=== PATIENT | male | born 1950 | race Caucasian/White ===

== ENCOUNTER 2024-10-04 11:00 | Day surgery (SDC) | payer OTHER, SELFPAY ==
[2024-10-01 14:02] VITALS: BMI 38.1
[2024-10-04 12:40] VITALS: BP 150/84; PULSE 77; RESP 18; TEMP 37; O2SAT 100; BMI 38.1
[2024-10-04] MEDS: LACTATED RINGERS 1,000 ML 42 ML IV (13:20)
--- NOTE | 2024-10-04 14:06 | P.HP_ITS ---
History of Present Illness History of Present Illness Date Patient Seen: 10/04/24 Time Patient Seen: 14:07 Chief complaint: Left Arthroscopy Knee Narrative: He notes persistent ongoing left knee pain. He has intermittent popping and clicking most of the pain is medially. [facility]LY [facility] Medical History HTN (hypertension) Social History Smoking Status: Current every day smoker Meds Home Medications and Allergies Home Medications Medication Instructions Recorded Confirmed Type lisinopril 10 mg tablet 10 mg PO DAILY 10/01/24 10/04/24 History Allergies Allergy/AdvReac Type Severity Reaction Status Date / Time codeine Allergy Verified 10/04/24 12:38 morphine Allergy Verified 10/04/24 12:38 naproxen [From Aleve] Allergy Verified 10/04/24 12:38 piroxicam [From Feldene] Allergy Verified 10/04/24 12:38 Review of Systems Review of Systems Narrative: No new fevers or chills, parts been fine lungs are fine Exam Vital Signs (past 8 hours): - 10/04/24 12:40 Temperature 98.6 F Pulse Rate 77 Respiratory Rate 18 Blood Pressure 150/84 H Pulse Oximetry 100 Narrative Exam Narrative: HEENT is benign, lungs are clear, cor regular rate and rhythm, abdomen soft and benign, left knee focal tenderness to palpation along the medial joint line, positive flexion [place] for medial joint line pain, no instability Objective Labs Labs: MRI scan shows a recurrent medial meniscus tear left knee Assessment & Plan Assessment and plan (1) Tear of medial meniscus of left knee, current: Status: Acute Plan I have recommended a left knee arthroscopy with repair as indicated. He has persistent ongoing medial joint line pain with some mechanical symptoms. The limits of the procedure options risks benefits and complications were discussed in detail. He understands and agrees we are going to proceed with a left knee arthroscopy. Time-Based Coding :: [TOTAL MINUTES] spent with patient and on the chart (including review of chart, obtaining history, exam, reviewing outside data, placing orders, documenting exam and treatment plan, and counseling patient) on [DATE].
[2024-10-04] MEDS: ACETAMINOPHEN 325 MG TABLET 975 MG PO (14:25)
[2024-10-04] MEDS: CEFAZOLIN VIAL 3 GM in SODIUM CHLORIDE 0.9% 100 ML IV (15:35)
[2024-10-04] MEDS: CEFAZOLIN 2 GM/100 ML PREMIX 100 ML IV (15:38)
--- NOTE | 2024-10-04 15:58 | SUR.OPER ---
Supine on padded OR bed, head on pillow, arms secured on padded arm boards at <90 degrees abduction, operative leg in arthroscopic leg linares, non operative in yellow fin gagan
[2024-10-04] MEDS: BUPIVACAINE 0.5% (PF) 30 ML, EPINEPHrine 0.15 MG INJ (16:09)
[2024-10-04 16:24] VITALS: BP 169/90; PULSE 73; RESP 18; O2SAT 100
--- NOTE | 2024-10-04 16:27 | PM.OP.1 ---
Operative Date/Time/Diagnoses Date of procedure: 10/04/24 Time of procedure: 15:45 Pre-op diagnosis: Left knee medial meniscus tear. Post-op diagnosis: same Procedure & Clinicians Procedure: Left knee arthroscopy with partial medial meniscectomy. Same procedure as scheduled: Yes Indications: This is a 74-year-old gentleman with ongoing constant pain into the left knee. He has a remote history of an industrial injury. He has had some ongoing substantial persistent pain. He was worked up with an MRI scan which showed evidence of a medial meniscus tear with some but not severe arthritic change. He is brought the operating room for left knee arthroscopy with repair as indicated. The procedure options risks benefits and complications was discussed in detail preoperatively including the limits of the procedure. Surgeon: Laina Solomon Anesthesia Type: General Operative Notes Findings: Displaced complex medial meniscus tear. Normal lateral compartment. Normal notch. Minimal patellofemoral OA, mild chondromalacia medial femoral condyle grade 2, some grade 3 areas in the posterior aspect of the medial femoral condyle and tibial plateau, examination under anesthesia stable Closure Type: primary Specimen(s): none sent Estimated Blood Loss (mL): 50 Blood products transfused: none Procedure in detail: Patient was brought to the operating room. He underwent the induction of a general anesthesia. His left lower extremity was prepped draped standard sterile fashion. He was given 2 g of IV antibiotics. His examination under anesthesia was stable. A 3 portal arthroscopy was performed using 11 blade to make the superolateral portal insufflated the knee doing the anterolateral portal inserting the scope and then diagnostically evaluated in the patellofemoral medial and lateral compartment. There was minimal chondromalacia in the patellofemoral joint. The medial compartment had a complex tear in the medial meniscus which extended from the middle 3rd of the medial meniscus into the posterior horn. There was areas of grade 2 chondromalacia in the anterior aspect of the medial femoral condyle tibial plateau and up to grade 3 in the posterior medial compartment. The notch had a normal ACL. The lateral compartment was within normal limits. Pathology was essentially complaint confined to the medial compartment. A mechanical shaver was used to perform a partial medial meniscectomy meniscectomy resecting a fairly large fragment of meniscus which had an unstable flap flap which was subluxable into the medial compartment. The residual meniscus was carefully checked with a probe. The knee was meticulously irrigated with normal saline. The portals were closed with interrupted nylon. Steri-Strips were applied in the wound was dressed sterilely. Patient tolerated the procedure well. He was transferred to recovery room in satisfactory condition. Complications none. Complications: none Post-operative Condition: stable Disposition: Acute Care Plan for aftercare: Weight bearing as tolerated on knee. Okay to begin immediate quad strengthening exercises. Use ice multiple times a day. Begin outpatient physical therapy. Suture removal in about 7-10 days postoperatively.
[2024-10-04 16:29] VITALS: BP 151/88; PULSE 74; RESP 21; O2SAT 100
[2024-10-04 16:34] VITALS: BP 156/86; PULSE 73; RESP 17; O2SAT 98
[2024-10-04] MEDS: hydrOXYzine HCL 25 MG TABLET PO (16:36)
[2024-10-04] MEDS: OXYCODONE IR 5 MG TABLET PO ×2 (16:37→17:00)
[2024-10-04 16:39] VITALS: BP 160/94; PULSE 73; RESP 12; TEMP 36.5; O2SAT 98
[2024-10-04 17:26] VITALS: BP 144/86; PULSE 66; RESP 18; TEMP 36.7; O2SAT 99
== END 2024-10-04 17:38 | disposition home or self-care (01) ==
PROVIDERS: Referring Provider Orthopaedic Surgery; Visit Provider Orthopaedic Surgery
PROC: (CPT 29870; principal; 2024-10-04 13:45)
DX: S83.212A Bucket-handle tear of medial meniscus, current injury, left knee, initial encounter (principal); I10 Essential (primary) hypertension; F17.210 Nicotine dependence, cigarettes, uncomplicated; M94.262 Chondromalacia, left knee
CPT/HCPCS: 29881; A9270; J0171; J0690; J2405; J2704; J3010

== ENCOUNTER → 2024-11-22 09:56 | Outpatient (CLI) | payer OTHER, SELFPAY ==
--- NOTE | 2024-11-22 09:57 | DI.US.S_ITS ---
PROCEDURE: US PERIPH VENOUS LOW EXTREM LT INDICATIONS: S/P LEFT KNEE ARTHROSCOPY - R/O DVT TECHNIQUE: Real-time imaging, as well as color and pulse Doppler interrogation, were performed of the lower extremity deep veins from the inguinal ligament to the popliteal fossa, with documentation of the visualized calf veins. COMPARISON: None. FINDINGS: The common femoral, femoral, popliteal, and the visualized calf veins are normally compressible, and free of intraluminal thrombus. Color and pulse Doppler demonstrate normal phasic intraluminal flow. There is normal augmentation response to distal compression maneuver. IMPRESSION: No findings of lower extremity deep venous thrombosis. Dictated by: Toney Ngo M.D. on 11/22/2024 at 11:01 Approved by: Toney Ngo M.D. on 11/22/2024 at 11:02
== END ==
LOC: US 09:56
PROVIDERS: Referring Provider Orthopaedic Surgery; Visit Provider Orthopaedic Surgery
DX: Z98.890 Other specified postprocedural states (principal)
CPT/HCPCS: 93971

== ENCOUNTER 2024-12-19 09:08 | Emergency (ER) | payer MEDICARE, SELFPAY ==
[2024-12-19] VITALS (14 sets, daily range): BP systolic 118–160; BP diastolic 63–85; PULSE 63–95; RESP 14–23; TEMP 36.8; O2SAT 93–99; BMI 40.6
--- NOTE | 2024-12-19 09:11 | DI.RAD.S_ITS ---
PROCEDURE: XR CHEST 1V INDICATIONS: chest pain TECHNIQUE: One view of the chest was acquired. COMPARISON: None. FINDINGS AND IMPRESSION: Limited single view radiograph with low lung volumes. No dense airspace consolidation. No pleural effusions. Heart size is at the upper limit of normal. Degenerative osseous changes. Dictated by: Andrea Sweeney M.D. on 12/19/2024 at 9:45 Approved by: Andrea Sweeney M.D. on 12/19/2024 at 9:45
--- NOTE | 2024-12-19 09:14 | EKG_ITS ---
[address] [address] Test Date: 2024-12-19 Pat Name: Antony Veronica Department: Room: Gender: Male [employer]: SCHUYLER : 1950 Requested By: Order Number: [id number] Reading MD: Irving Wiley MD Measurements Intervals [place] Rate: 94 P: 51 TX: 160 QRS: -17 QRSD: 96 T: 68 QT: 358 QTc: 447 Interpretive Statements Normal sinus rhythm Possible Lateral infarct , age undetermined Inferior infarct , age undetermined NO PRIOR TRACING Electronically Signed On 12-20-2024 7:36:14 PST by Irving Wiley MD
[2024-12-19 09:36] LABS: Add Manual Diff / Slide Review NO; Basophils Absolute Auto 100 /uL (0-100); Basophils Percent Auto 1.2 % (0-2); Eosinophils Absolute Auto 100 /uL (0-450); Eosinophils Percent Auto 1.2 % (2-4); Hematocrit 46.8 % (41-53); Hemoglobin 16.3 g/dL (13.5-17.5); Lymphocytes Absolute Auto 2300 /uL (1100-4500); Lymphocytes Percent Auto 28.7 % (25-40); Mean Corpuscular HGB Conc 34.9 % (30-36); Mean Corpuscular Volume 94.7 fL (80-100); Monocytes Absolute Auto 800 /uL (0-900); Monocytes Percent Auto 9.3 % (3-14); Neutrophils Absolute Auto 4800 /uL (1500-7000); Neutrophils Percent Auto 59.6 % (50-75); Platelet Count 268 X10^3/uL (150-400); Red Blood Cell Count 4.94 X10^6/uL (4.5-5.9); Red Cell Distribution Width 12.5 % (11.6-14.8); White Blood Cell Count 8.1 X10^3/uL (4.5-11.0)
[2024-12-19 09:41] LABS: INR 0.9 (0.9-1.3); Prothrombin Time 10.7 SECONDS (9.4-12.5)
[2024-12-19 09:44] LABS: PTT Partial Thromboplastin Tim 33 SECONDS (25.1-36.5)
[2024-12-19 09:47] LABS: Alanine Aminotransferase 46 IU/L (<50); Albumin 4.8 g/dL (3.5-5.0); Albumin Globulin Ratio 1.7 (1.0-2.8); Alkaline Phosphatase 53 U/L (38-126); Aspartate Aminotransferase 37 IU/L (17-59); BUN Creatinine Ratio 16.3 (6-22); Bilirubin Total 0.6 mg/dL (0.2-1.3); Blood Urea Nitrogen 20 mg/dL (9-20); Carbon Dioxide 24 mmol/L (22-32); Chloride 104 mmol/L (98-107); Creatine Kinase 146 U/L (55-170); Estimated Glomerular Filt Rate > 60 mL/min (>60); Globulin 2.9 g/dL (1.7-4.1); Glucose 112 mg/dL (80-110); HEMOLYSIS < 15 (0-50); Lipase 67 U/L (23-300); Magnesium 1.9 mg/dL (1.6-2.3); Potassium 4.2 mmol/L (3.4-5.1); Sodium 139 mmol/L (137-145); Total Protein 7.7 g/dL (6.3-8.2)
[2024-12-19 09:58] LABS: NT-proBNP (BNP-Adult 18+) 28 pg/mL (<125); Troponin I < 0.012 ng/mL (0.01-0.034)
--- NOTE | 2024-12-19 10:15 | ED.CHESTPAIN ---
HPI - Chest Pain General Chief Complaint: Chest Pain Stated Complaint: Mild chest pain Time Seen by Provider: 12/19/24 09:26 Source: patient Mode of arrival: Ambulatory Limitations: no limitations History of Present Illness HPI narrative: Patient here for reproducible epigastric pain worse at night worse with eating. Worse with lying flat. No prior history of endoscopy of the stomach. Patient has been under lot of stress recently in the past couple of months. Causes bloating and sharp and burning pain. Radiates up to his chest at the sternum. Denies any exertional chest pain or dyspnea. No back pain. No syncope. No dizziness. No diaphoresis. No prior history of blood clots in legs or lungs. No history aortic aneurysm or dissection. No primary family history of coronary disease. He does smoke. Does take blood pressure medication. Related Data Home Medications Medication Instructions Recorded Confirmed lisinopril 10 mg tablet 10 mg PO DAILY 10/01/24 10/04/24 Previous Rx's Medication Instructions Recorded pantoprazole 40 mg tablet,delayed 40 mg PO DAILY #30 tabs 12/19/24 release (Protonix) sucralfate 1 gram tablet (Carafate) 1 g PO QAC #20 tabs 12/19/24 Allergies Allergy/AdvReac Type Severity Reaction Status Date / Time codeine Allergy Verified 10/04/24 12:38 morphine Allergy Verified 10/04/24 12:38 naproxen [From Aleve] Allergy Verified 10/04/24 12:38 piroxicam [From Feldene] Allergy Verified 10/04/24 12:38 Review of Systems Review of Systems Narrative: GENERAL: Negative chills, fatigue, malaise, fever, sweats. HEENT: Negative sinus pain, ear pain, sore throat RESPIRATORY: Negative dyspnea, cough CARDIOVASCULAR: Negative chest pain, palpitations GASTROINTESTINAL: Negative nausea, vomiting, positive abdominal pain : Negative dysuria, frequency, hematuria MUSCULOSKELETAL: Negative muscle or bony pain SKIN: Negative rash, skin lesions NEUROLOGIC: Negative weakness, numbness ROS Unobtainable: All systems reviewed & are unremarkable except as noted in HPI and below Patient History Medical History HTN (hypertension) Social History Smoking Status: Current every day smoker Smoking Status: Current every day smoker Exam Narrative Exam Narrative: GENERAL: in no distress, not toxic not dyspneic HEAD: Normocephalic. EYES: Pupils equal round ENT: Mucous membranes moist. NECK: Trachea midline. CARDIOVASCULAR: Regular rate and rhythm RESPIRATORY: Clear to auscultation. Breath sounds equal bilaterally. No wheezes, rales, or rhonchi. GASTROINTESTINAL: Abdomen soft, have a soft there is reproducible epigastric tenderness no peritoneal signs no guarding no rebound no pain out of proportion to exam EXTREMITIES: No gross deformities. BACK: No flank tenderness. NEURO: AOx4. Clear speech SKIN: Warm and dry PSYCH: Not anxious, is cooperative Initial Vital Signs Initial Vital Signs: Vital Signs Temperature 98.3 F 12/19/24 09:16 Pulse Rate 95 H 12/19/24 09:16 Respiratory Rate 18 12/19/24 09:16 Blood Pressure 157/85 H 12/19/24 09:16 Pulse Oximetry 97 12/19/24 09:16 Oxygen Delivery Method Room Air 12/19/24 09:16 Course Orders Ordered: Discontinued Medications Al Hydrox/Mg Hydrox/Simethicone 20 ml/ Lidocaine HCl 15 ml 0 ml PO NOW ONE Stop: 12/19/24 10:03 Last Admin: 12/19/24 10:17 Dose: 35 ml Documented By: ELMO Ondansetron HCl (Ondansetron 4 Mg/2 Ml Inj) 4 mg IV NOW ONE Stop: 12/19/24 10:03 Last Admin: 12/19/24 10:16 Dose: 4 mg Documented By: ELMO Pantoprazole Sodium (Pantoprazole 40 Mg Vial) 40 mg IV NOW ONE Stop: 12/19/24 10:03 Last Admin: 12/19/24 10:16 Dose: 40 mg Documented By: ELMO Sodium Chloride (Sodium Chloride 0.9% Flush) 50 ml IV NOW ONE Stop: 12/19/24 10:18 Last Admin: 12/19/24 10:28 Dose: 50 ml Documented By: ELMO Vital Signs Vital signs: Vital Signs - 8 hr 12/19/24 09:16 12/19/24 09:16 12/19/24 09:30 Temperature 98.3 F Pulse Rate 95 H 95 H 87 Respiratory Rate 18 16 Blood Pressure 157/85 H Pulse Oximetry 97 97 95 Oxygen Delivery Method Room Air 12/19/24 09:31 12/19/24 09:31 12/19/24 10:00 Temperature Pulse Rate 87 79 Respiratory Rate 23 15 Blood Pressure 136/70 Pulse Oximetry 94 96 Oxygen Delivery Method 12/19/24 10:00 12/19/24 10:34 12/19/24 10:35 Temperature Pulse Rate Respiratory Rate Blood Pressure 136/68 157/74 H Pulse Oximetry 98 Oxygen Delivery Method 12/19/24 10:35 12/19/24 11:00 12/19/24 11:01 Temperature Pulse Rate 78 74 74 Respiratory Rate 22 18 16 Blood Pressure Pulse Oximetry 97 93 94 Oxygen Delivery Method 12/19/24 11:01 12/19/24 11:30 12/19/24 11:30 Temperature Pulse Rate 70 Respiratory Rate 20 Blood Pressure 140/63 140/68 Pulse Oximetry 95 Oxygen Delivery Method 12/19/24 12:00 12/19/24 12:00 Temperature Pulse Rate 65 Respiratory Rate 19 Blood Pressure 118/66 Pulse Oximetry 98 Oxygen Delivery Method MDM - Chest Pain Lab Data 12/19/24 09:25 12/19/24 09:25 Labs: Lab Results 12/19/24 Range/Units 09:25 WBC 8.1 (4.5-11.0) X10^3/uL RBC 4.94 (4.5-5.9) X10^6/uL Hgb 16.3 (13.5-17.5) g/dL Hct 46.8 (41-53) % MCV 94.7 (80-100) fL MCH 33.0 (26-34) PG MCHC 34.9 (30-36) % RDW 12.5 (11.6-14.8) % Plt Count 268 (150-400) X10^3/uL Neut % (Auto) 59.6 (50-75) % Lymph % (Auto) 28.7 (25-40) % [place] % (Auto) 9.3 (3-14) % Eos % (Auto) 1.2 L (2-4) % Baso % (Auto) 1.2 (0-2) % Neut # (Auto) 4800 (2399-1973) /uL Lymph # (Auto) 2300 (1028-4344) /uL [place] # (Auto) 800 (0-900) /uL Eos # (Auto) 100 (0-450) /uL Baso # (Auto) 100 (0-100) /uL PT 10.7 (9.4-12.5) SECONDS INR 0.9 (0.9-1.3) APTT 33 (25.1-36.5) SECONDS Sodium 139 (137-145) mmol/L Potassium 4.2 (3.4-5.1) mmol/L Chloride 104 (98-107) mmol/L Carbon Dioxide 24 (22-32) mmol/L BUN 20 (9-20) mg/dL Creatinine 1.23 (0.66-1.25) mg/dL Estimated GFR > 60 (>60) mL/min BUN/Creatinine Ratio 16.3 (6-22) Glucose 112 H (80-110) mg/dL Calcium 10.0 (8.4-10.2) mg/dL Magnesium 1.9 (1.6-2.3) mg/dL Total Bilirubin 0.6 (0.2-1.3) mg/dL AST 37 (17-59) IU/L ALT 46 (<50) IU/L Alkaline Phosphatase 53 (38-126) U/L Total Creatine Kinase 146 (55-170) U/L Troponin I < 0.012 (0.01-0.034) ng/mL NT-Pro-B Natriuret Pep 28 (<125) pg/mL Total Protein 7.7 (6.3-8.2) g/dL Albumin 4.8 (3.5-5.0) g/dL Globulin 2.9 (1.7-4.1) g/dL Albumin/Globulin Ratio 1.7 (1.0-2.8) Lipase 67 (23-300) U/L Imaging Data Chest x-ray: Radiologist's Impression: [address] [address] XRay Report Signed Patient: Antony Veronica MR#: [id number] : 1950 Acct:[id number] Age/Sex: 74 / M Date of Service: 12/19/24 Loc: ED Accession Number: [id number] Procedure: XR chest 1V Ordering Provider: Vic Cash MD PROCEDURE: XR CHEST 1V INDICATIONS: chest pain TECHNIQUE: One view of the chest was acquired. COMPARISON: None. FINDINGS AND IMPRESSION: Limited single view radiograph with low lung volumes. No dense airspace consolidation. No pleural effusions. Heart size is at the upper limit of normal. Degenerative osseous changes. Dictated by: Andrea Sweeney M.D. on 12/19/2024 at 9:45 Approved by: Andrea Sweeney M.D. on 12/19/2024 at 9:45 CT scan - chest: Radiologist's Impression: [address] [address] [address] Scan Report Signed Patient: Antony Veronica MR#: [id number] : 1950 Acct:[id number] Age/Sex: 74 / M Date of Service: 12/19/24 Loc: ED Accession Number: [id number] Procedure: CT angio chest PE protocol Ordering Provider: Vic Cash MD PROCEDURE: CT ANGIO CHEST PE PROTOCOL INDICATIONS: Chest pain TECHNIQUE: After the administration of intravenous contrast, 2 mm thick sections acquired from the pulmonary apices to the posterior costophrenic angles. 3-dimensional maximum intensity projection (MIP) coronal and sagittal reformats were then acquired through the thorax. For radiation dose reduction, the following was used: automated exposure control, adjustment of mA and/or kV according to patient size. COMPARISON: [facility], CR, XR CHEST 1V, 12/19/2024, 9:07. FINDINGS: Image quality: Diagnostic Lungs and pleura: Basal atelectasis. No dense airspace disease. No pleural effusions. There are many small pulmonary nodules, follow-up is optional for high risk patients. Many nodules are calcified, suggestive of granulomas. Mediastinum, heart, and esophagus: No acute pulmonary embolism. Mildly patulous esophagus. Heart size is at the upper limit of normal. No pathologic lymph nodes by size criteria. Suspect coronary calcifications Chest wall and thyroid: Unremarkable Upper abdomen: Separately dictated Bones: There are degenerative changes. IMPRESSION: No acute pulmonary embolism. No dense airspace disease or pleural effusions. Many small pulmonary nodules are present, some which likely represent calcified granulomas. If the patient is considered high risk for pulmonary malignancy, annual chest CT may be obtained for follow-up. Abdominal pelvic findings are separately dictated. Dictated by: Andrea Sweeney M.D. on 12/19/2024 at 11:00 Approved by: nAdrea Sweeney M.D. on 12/19/2024 at 11:04 CT scan - abdomen/pelvis: Radiologist's Impression: [address] [address] [address] Scan Report Signed Patient: Antony Veronica MR#: [id number] : 1950 Acct:[id number] Age/Sex: 74 / M Date of Service: 12/19/24 Loc: ED Accession Number: [id number] Procedure: CT abdomen pelvis w con Ordering Provider: Vic Cash MD PROCEDURE: CT ABDOMEN PELVIS W CON INDICATIONS: upper abdominal pain TECHNIQUE: After the administration of intravenous contrast, axial sections acquired from the lung bases to the pubic symphysis. Coronal and sagittal reformats were performed. For radiation dose reduction, the following was used: automated exposure control, adjustment of mA and/or kV according to patient size. COMPARISON: None. FINDINGS: Image quality: Diagnostic. Lower Chest: No significant findings. ABDOMEN: Liver: No solid mass. Probable cysts versus hemangiomata in the liver. Gallbladder: No radiopaque gallstones or wall thickening. Biliary ducts: No biliary dilation. Pancreas: No ductal dilation. Spleen: Size is within normal limits. Adrenal Glands: No adrenal nodules. Kidneys and Ureters: No hydronephrosis. No solid mass. No complex renal cystic lesion which requires follow up. Stomach and Bowel: Normal colonic caliber, without significant wall thickening. Peritoneum: No abnormal intraperitoneal fluid. No free air. Ventral Wall: No significant ventral hernia. Abdominal Nodes: No retroperitoneal or mesenteric adenopathy by size criteria. Vessels: Aorta and inferior vena cava are normal in size. PELVIS: Pelvic Organs: Prostatomegaly.. Bladder: No bladder wall thickening, accounting for underdistention. Pelvic Nodes: No enlarged lymph nodes. Miscellaneous: No inguinal hernias are seen. Bones: No aggressive osseous abnormality. IMPRESSION: 1. No acute abdominal process noted. 2. Prostatomegaly. 3. Small fat containing inguinal hernias. Dictated by: Erlin Sosa M.D. on 12/19/2024 at 10:56 Approved by: Erlin Sosa M.D. on 12/19/2024 at 11:09 [facility] Narrative Medical decision making narrative: Patient here for reproducible epigastric pain worse at night worse with eating. Worse with lying flat. No prior history of endoscopy of the stomach. Patient has been under lot of stress recently in the past couple of months. Causes bloating and sharp and burning pain. Radiates up to his chest at the sternum. Denies any exertional chest pain or dyspnea. No back pain. No syncope. No dizziness. No diaphoresis. No prior history of blood clots in legs or lungs. No history aortic aneurysm or dissection. No primary family history of coronary disease. He does smoke. Does take blood pressure medication. After history and exam, patient has reproducible epigastric tenderness. CBC CMP lipase troponin EKG chest x-ray, CT chest abdomen pelvis ordered. Protonix Zofran GI cocktail. [facility] Medical records reviewed: No recent visit for this complaint Differential considered: Includes but not limited to STEMI non-STEMI acute coronary syndrome angina gastritis acid reflux pancreatitis cholelithiasis cholecystitis Lab Test results independently reviewed as above. Pertinent findings: Troponin less than 0.012 WBC 8.1 hemoglobin 16.3 INR of 0.9 sodium 139 GFR greater than 60 AST 37 ALT 46 lipase 67 Independently reviewed EKG normal sinus rhythm rate [address] elevation or depression Imaging studies independently reviewed: Chest x-ray no acute finding CT chest CT abdomen pelvis no acute finding Consultations: None indicated this time. Treatments: Zofran GI cocktail Protonix Re-evaluations: 1:49 p.m.. Updated patient results. Patient is pain-free after GI cocktail. Reviewed with him likely gastritis acid reflux ulcer causing his symptoms. Who will decrease any spicy foods or carbonated drinks. I will give him referral for General surgery for outpatient EGD. Return precautions reviewed. Prescription for Protonix and Carafate will be provided. He desires discharge home. Discussion: Appropriate for discharge home exam is reassuring. Return precautions reviewed patient. Symptoms improved after GI cocktail and Protonix. Likely gastritis ulcer GERD. He desires discharge home. Diagnosis: Epigastric abdominal pain Discharge Plan Departure Patient Disposition: Home Clinical Impression: Abdominal pain, acute, epigastric Instructions: [place] Diet, DI for Gastritis, DI for Abdominal Pain-Adult Activity Restrictions/Additional Instructions: I am glad you are feeling better. Your laboratory studies imaging studies are reassuring. Prescription medication has been sent to your pharmacy to [employer]. This will help for the discomfort he is having your stomach. Please call provided general surgery office for scheduling outpatient endoscopy of your stomach. No fried fatty greasy foods spicy foods or carbonated drinks as this may upset your stomach more. Return if worse if any questions or concerns Prescriptions: New sucralfate [Carafate] 1 gram tablet 1 g PO QAC Qty: 20 0RF pantoprazole [Protonix] 40 mg tablet,delayed release (DR/EC) 40 mg PO DAILY Qty: 30 0RF No Action lisinopril 10 mg tablet 10 mg PO DAILY Referrals: Horace Smith MD [Physician] - Stand Alone Forms: Patient Portal/API/Survey
[2024-12-19] MEDS: ONDANSETRON 4 MG/2 ML INJ IV (10:16)
[2024-12-19] MEDS: PANTOPRAZOLE 40 MG VIAL IV (10:16)
[2024-12-19] MEDS: MAG HYDROX/ALUMINUM/SIMETH SUS 20 ML, LIDOCAINE VISCOUS 2% 15 ML PO (10:17)
[2024-12-19] MEDS: SODIUM CHLORIDE 0.9% FLUSH 50 ML IV (10:28)
--- NOTE | 2024-12-19 13:39 | CM.SWNOTE ---
ED METAL MOVER Note Patient is 74 y/o male who presents to ED due to concern for chest pain. METAL MOVER receives consult due to patient's report of concern for food, housing and transportation. Patient endorses he resided in [facility] and returned to [place] to address a worker's comp. claim in [place] regarding knee surgery. Patient states his PCP in [place] encouraged him to do so. Patient's PCP is [place], patient saw Orthopedic Surgeon in [place] Dr. Gillette recently and patient had recent knee surgery performed by Dr. Solomon in September. Patient has [facility] Medicare insurance. Patient presents as A/Ox4, endorses independence with ADLs. Patient states [facility] in a Studio. Patient states post surgery he engaged in outpatient PT and states that the exercises caused more pain than pre-surgery. Patient identifies the dilemma of returning to [place] where his PCP and other specialists are or continuing to stay in [place] and seek new PCP. Patient endorses he has a vocational counselor and engages in telehealth therapy through hospice as his in 2022. Patient states that when his their house went to his 's children and patient was staying in hotels or his vehicles. Patient states that he is stable and can financially afford [employer]. Patient states that he receives Worker's Comp, disability and social security. METAL MOVER offers to provide patient with lists of PCPs in the area, set up a PCP locally and patient declines. Patient declines any need for any resources. Patient endorses his plan to decide in the next few months if he will return to [place] or to continue to reside in [place]. Patient endorses he needs to consider cost of living, medical providers and supports. Patient denies local supports in [place] and states he has cousins in [place] and family around the country. Patient encouraged to follow up with outpatient care at his earliest convenience as well. Plan: patient likely to d/c to home upon medical clearance, patient to f/u with outpatient providers and decide where he wants to be located to seek outpatient care. MILDRED KamaraSW
== END 2024-12-19 13:58 | disposition home or self-care (01) ==
PROVIDERS: Emergency Provider Emergency Medicine
DX: R10.13 Epigastric pain (principal); R07.9 Chest pain, unspecified; I10 Essential (primary) hypertension; F17.210 Nicotine dependence, cigarettes, uncomplicated
CPT/HCPCS: 36415; 71045; 71275; 74177; 80053; 82550; 83690; 83735; 83880; 84484; 85025; 85610; 85730; 93005; 96374; 96375; 99284; J2405; J2470; Q9967

== ENCOUNTER 2025-07-22 09:47 | Emergency (ER) | payer OTHER, SELFPAY ==
[2025-07-22 10:00] VITALS: BP 153/71; PULSE 74; RESP 18; TEMP 36.9; O2SAT 95; BMI 38.0
--- NOTE | 2025-07-22 10:40 | ED.EXTPRO ---
HPI - Extremity Problem General Chief complaint: Extremity Problem,Nontraumatic Stated complaint: left leg swelling into foot getting worse Time Seen by Provider: 07/22/25 10:31 Source: patient, RN notes reviewed and old records reviewed Mode of arrival: Ambulatory Limitations: no limitations History of Present Illness HPI Narrative: 75-year-old male with history of hypertension left meniscal surgery in September has had 2 months of left lower extremity swelling and increasing pain over the last 2 days. Patient states his left leg has been having swelling fairly persistently for several months. He has a DVT ultrasound a couple of months ago which was negative at that time but notes has been a little bit more swollen. He has noted some redness and discoloration particularly in the lower leg. He states pain seems to be lateral calf region. Patient notes pain has been increased most recently. He denies fevers. Denies any chest pain or shortness breath today. No GI or urinary symptoms. States he got a flu shot last week which made him feel not very good when he slept in bed for about 12 hours the day afterwards. Patient states no swelling in his right lower extremity. He has only daily medication is lisinopril. States he has had prior back surgery as well as appendectomy had a bucket-handle surgery in his left knee remotely followed by a meniscal surgery in September. Does use tobacco regularly, denies any recreational drugs or regular alcohol. Related Data Home Medications ?Medication ?Instructions ?Recorded ?Confirmed lisinopril 10 mg tablet 10 mg PO DAILY 10/01/24 10/04/24 Previous Rx's ?Medication ?Instructions ?Recorded doxycycline hyclate 100 mg tablet 100 mg PO BID #20 tabs 07/22/25 Allergies Allergy/AdvReac Type Severity Reaction Status Date / Time codeine Allergy Verified 07/22/25 10:00 morphine Allergy Verified 07/22/25 10:00 naproxen (From Aleve) Allergy Verified 07/22/25 10:00 piroxicam (From Feldene) Allergy Verified 07/22/25 10:00 Review of Systems Review of Systems ROS Unobtainable: All systems reviewed & are unremarkable except as noted in HPI and below Patient History Medical History Colon cancer screening Gastroesophageal reflux HTN (hypertension) Smoking Status: Current every day smoker Exam Narrative Exam Narrative: GENERAL: Alert and oriented x three, male mild distress HEENT: Head normocephalic, atraumatic, EOMI, pupils reactive, face symmetric, moist mucous membranes NECK: Supple, full range of motion CARDIOVASCULAR: Regular rate and rhythm without murmurs, rubs or gallops. Patient has a nonpitting edema of the left lower extremity not appreciated on the right. 2+ pulses bilateral lower extremities. Both extremities are warm, no cyanosis or pallor. Cap refills less than 2 seconds in the left foot. Patient does have some warmth and possible erythema the anterior harris tracking about senior care up. There was no wounds or changes. No cuts or lacerations of the foot or lower extremity. Patient has nontender to touch. RESPIRATORY: Breath sounds equal bilaterally, no wheezes rales or rhonchi. No tachypnea or accessory muscle use ABDOMEN: Soft, nontender. Normoactive bowel sounds all 4 quadrants. No guarding or rebound, rigidity, no mass : No CVA tenderness EXTREMITIES: Normal range of motion, no clubbing or edema. Neurovascularly intact NEUROLOGICAL: Cranial nerves II through XII grossly intact. Moving all extremities SKIN: Warm, dry, no petechiae, no rashes or lesions otherwise noted. Initial Vital Signs Initial Vital Signs: Vital Signs Temperature 98.5 F 07/22/25 10:00 Pulse Rate 74 07/22/25 10:00 Respiratory Rate 18 07/22/25 10:00 Blood Pressure 153/71 H 07/22/25 10:00 Pulse Oximetry 95 07/22/25 10:00 Oxygen Delivery Method Room Air 07/22/25 10:00 Course Orders Ordered: ED Orders 07/22/25 10:47 US perip venous low extrem lt Stat 07/22/25 11:40 Consult to SAND MIXER OPERATOR - Barge Master Stat Vital Signs Vital signs: Vital Signs - 8 hr 07/22/25 10:00 07/22/25 11:43 07/22/25 11:43 Temperature 98.5 F Pulse Rate 74 67 Respiratory Rate 18 16 Blood Pressure 153/71 H 125/58 L Pulse Oximetry 95 96 Oxygen Delivery Method Room Air MDM - Extremity (Nontraumatic) MDM Narrative Medical decision making narrative: DVT ultrasound is negative for DVT. 75-year-old male with persistent left lower extremity swelling with some erythema and skin changes for several months. Patient notes he had knee surgery in the past. Was meniscal surgery which is less likely develop DVT but we will obtain ultrasound which was negative. We will go ahead and treat for potential cellulitis. If symptoms are persisting after this we would like for patient to follow up with primary care. He has some barriers to access to care somewhat with SAND MIXER OPERATOR to help facilitate follow up appointment which was secured for the patient. Discharge Plan Departure Patient Disposition: Home Clinical Impression: Cellulitis of left leg Instructions: DI for Cellulitis -- Adult Activity Restrictions/Additional Instructions: Follow up for recheck if your symptoms are not improving. Follow up with primary care, our manager social services is helping to set you up with an appointment. Your DVT ultrasound is negative today, based on your skin changes I would treat you for cellulitis or an infection of the skin. Take antibiotics until completed. Prescription sent to [facility] Please return if you develop fevers, increasing swelling, redness, rapidly worsening pain, any other new or concerning changes. Prescriptions: New doxycycline hyclate 100 mg tablet 100 mg PO BID Qty: 20 0RF No Action lisinopril 10 mg tablet 10 mg PO DAILY Referrals: Miscellaneous,Doctor, [Primary Care Provider, Medical] Stand Alone Forms: Patient Portal/API
--- NOTE | 2025-07-22 10:47 | DI.US.S_ITS ---
PROCEDURE: US PERIP VENOUS LOW EXTREM LT INDICATIONS: swelling LLE 2 months, hx knee sx september, redness/swelling TECHNIQUE: Real-time imaging, as well as color and pulse Doppler interrogation, were performed of the lower extremity deep veins from the inguinal ligament to the popliteal fossa, with documentation of the visualized calf veins. COMPARISON: [facility], , [facility] VENOUS LOW EXTREM LT, 11/22/2024, 10:07. FINDINGS: The common femoral, femoral, popliteal, and the visualized calf veins are normally compressible, and free of intraluminal thrombus. Color and pulse Doppler demonstrate normal phasic intraluminal flow. There is normal augmentation response to distal compression maneuver. IMPRESSION: No findings of lower extremity deep venous thrombosis. Dictated by: Aleksandr Stone M.D. on 07/22/2025 at 10:13 Approved by: Aleksandr Stone M.D. on 07/22/2025 at 10:14
[2025-07-22 11:43] VITALS: BP 125/58; PULSE 67; RESP 16; O2SAT 96
--- NOTE | 2025-07-22 12:08 | CM.DPNOTE ---
ED BARK SKINNER Note: Patient is a 75yo male, resident of [place], currently staying at the [facility] alone. Reviewed chart and discussed with multidisciplinary team pt's medical status, BARK SKINNER consulted to assist with PCP establishment and follow up due to left leg cellulitis. BARK SKINNER entered room, introduced self and role. Patient explains they lived in [place], [place] for approximately 14 years before they abruptly had to move back to [place] after their and they lost their housing arrangement. Pt has since thought he might return to [place] but recognizes he should see a provider soon. Pt states he drives his POV, is mainly independent with ADLs. Plan is for discharge home with PO abx, will need follow up with new PCP as soon as possible. BARK SKINNER called [facility] and scheduled pt for appointment on Tuesday, 07/31 at 3:00pm with LISSETH Sandoval. Provided printed appointment time/date for patient reference. MILDRED SheaSW
== END 2025-07-22 12:28 | disposition home or self-care (01) ==
PROVIDERS: Emergency Provider Emergency Medicine
DX: L03.116 Cellulitis of left lower limb (principal)
CPT/HCPCS: 93971; 99281; 99283

== ENCOUNTER 2025-07-31 14:57 | Emergency (ER) | payer OTHER, SELFPAY ==
[2025-07-31 15:10] VITALS: BP 151/83; PULSE 81; RESP 14; TEMP 36.8; O2SAT 98; BMI 38.0
--- NOTE | 2025-07-31 15:34 | ED.EXTPRO ---
HPI - Extremity Problem <CLINTON Brantley Last Filed: 07/31/25 18:33> General Chief complaint: Extremity Problem,Nontraumatic Stated complaint: Follow up from last week Time Seen by Provider: 07/31/25 15:04 History of Present Illness HPI Narrative: Mr. Veronica is a 75-year-old gentleman with a past medical history of hypertension, left meniscus repair in September who presents to the emergency department for left lower extremity cellulitis recheck. Patient was seen in the emergency department for redness and swelling of his left lower extremity on 07/22/25. He was placed on doxycycline b.i.d. times 10 days. He was scheduled for an appointment with a primary care provider today however unfortunately they were unable to see him as he is hoping for this problem to be covered under his prior L&I claim from his menscus surgery, and that provider does not manage L&I claims. At this time the patient states he is still having some pain of the left knee is concerned the cellulitis was because of this prior and I claim. At this time he has no more redness or skin color change of the left lower extremity. He does have equal bilateral lower extremity 1+ pitting edema. No fevers or chills. He has been having some mild nausea and fatigue while taking the doxycycline, he has 2 pills left. Related Data Home Medications ?Medication ?Instructions ?Recorded ?Confirmed lisinopril 10 mg tablet 10 mg PO DAILY 10/01/24 10/04/24 Previous Rx's ?Medication ?Instructions ?Recorded doxycycline hyclate 100 mg tablet 100 mg PO BID #20 tabs 07/22/25 Allergies Allergy/AdvReac Type Severity Reaction Status Date / Time codeine Allergy Verified 07/22/25 10:00 morphine Allergy Verified 07/22/25 10:00 naproxen (From Aleve) Allergy Verified 07/22/25 10:00 piroxicam (From Feldene) Allergy Verified 07/22/25 10:00 Review of Systems <Danielle Ibarra PA-C - Last Filed: 07/31/25 18:33> Review of Systems ROS Unobtainable: All systems reviewed & are unremarkable except as noted in HPI and below Patient History <Danielle Ibarra PA-C - Last Filed: 07/31/25 18:33> Medical History Colon cancer screening Gastroesophageal reflux HTN (hypertension) Exam <Danielle Ibarra PA-C - Last Filed: 07/31/25 18:33> Narrative Exam Narrative: GENERAL: 75 year old patient appears stated age. Well-developed patient, in no acute distress. HEAD: Atraumatic. Normocephalic. NECK: Trachea midline. Cervical ROM intact. CARDIOVASCULAR: Regular rate RESPIRATORY: ?Nonlabored respirations. ?Speaking in clear, full sentences. EXTREMITIES: 1+ BL LE edema. Palpable DP pulses bilaterally and brisk cap refill in the toes. No color change of the bilateral lower extremities, no erythema or increased warmth, no LLE calf tenderness. NEURO: AOx3. ?Clear speech. ?Moves all 4 extremities appropriately. SKIN: No rash or erythema of visible areas Initial Vital Signs Initial Vital Signs: Vital Signs Temperature 98.3 F 07/31/25 15:10 Pulse Rate 81 07/31/25 15:10 Respiratory Rate 14 07/31/25 15:10 Blood Pressure 151/83 H 07/31/25 15:10 Pulse Oximetry 98 07/31/25 15:10 Oxygen Delivery Method Room Air 07/31/25 15:10 <Cinthya Cabral DO - Last Filed: 08/02/25 23:34> Initial Vital Signs Initial Vital Signs: Vital Signs Temperature 98.3 F 07/31/25 15:10 Pulse Rate 81 07/31/25 15:10 Respiratory Rate 14 07/31/25 15:10 Blood Pressure 151/83 H 07/31/25 15:10 Pulse Oximetry 98 07/31/25 15:10 Oxygen Delivery Method Room Air 07/31/25 15:10 Course <Danielle Ibarra PA-C - Last Filed: 07/31/25 18:33> Vital Signs Vital signs: Vital Signs - 8 hr 07/31/25 15:10 Temperature 98.3 F Pulse Rate 81 Respiratory Rate 14 Blood Pressure 151/83 H Pulse Oximetry 98 Oxygen Delivery Method Room Air <Cinthya Cabral DO - Last Filed: 08/02/25 23:34> Vital Signs Vital signs: Vital Signs - 8 hr 07/31/25 15:10 Temperature 98.3 F Pulse Rate 81 Respiratory Rate 14 Blood Pressure 151/83 H Pulse Oximetry 98 Oxygen Delivery Method Room Air MDM - Extremity (Nontraumatic) <Danielle Ibarra PA-C - Last Filed: 07/31/25 18:33> Medical Records Attestation: I reviewed the patient's medical records. [facility] Narrative Medical decision making narrative: 75-year-old gentleman with a past medical history of hypertension, left meniscus repair in September who presents to the emergency department for left lower extremity cellulitis recheck. Diagnosed with left lower extremity cellulitis in the ER on 07/22/2025, prescribed doxycycline b.i.d. & had negative left lower extremity venous ultrasound at that time. This leg recheck was supposed to be with the primary care provider, however patient was unable to be seen by them as they do not accept L&I insurance claim patients. Differential diagnosis includes but is not limited to cellulitis, DVT, fluid overload, dependent edema, etc. On exam patient is in no acute distress, nontoxic-appearing, all vital signs appropriate. He is here for left lower extremity cellulitis recheck. Left lower extremity appears identical to right lower extremity, no redness or increased warmth. He does have 1+ bilateral edema, he is neurovascularly intact bilaterally. Patient is quite upset in regards to prior L&I claim, would like this to be placed under that claim, has not seen a primary care doctor here in many years. Discussed with the patient that he needs to establish primary care regardless of the L&I claim. Recommended compression socks, PCP follow up to establish care, calling his orthopedic surgeon for concerns of his left knee L&I claim, and returning to the ER with any new or worsening symptoms or other concerns. Social work met with the patient and let them know that the primary care office is actually going to call them to schedule an appointment with an L&I provider as well. Patient verbalized understanding of all this information is agreeable with the plan, he is ambulatory and stable for discharge home. Discharge Plan Departure Patient Disposition: Home Clinical Impression: Encounter for wound re-check Instructions: DI for Peripheral Edema -- Bilateral Activity Restrictions/Additional Instructions: Dear Mr. Veronica, Thank you for coming to the emergency department. Today you were evaluated for left lower extremity cellulitis recheck. I am very sorry that you are unable to follow up with [address], but they will be calling you in a few days to schedule an appointment with a provider who does handle L&I claims. As we discussed, it is important to establish primary care to further evaluate all of your preventative health measures regardless of L and I as well. You may stop taking your antibiotics, your left lower extremity looks good without signs of infection. You do have swelling in both legs so I would like you to wear knee-high compression socks to help with this. Please return to the emergency department if develop any new or worsening symptoms or other concerns such as fevers, skin color change etc. Please follow up with your primary care doctor within the next 2-3 days for ER follow-up. (If you do not have a PCP you can call [phone]. ?to schedule an appointment with an [facility] Primary Care Provider) IF YOU DEVELOP ANY NEW OR WORSENING SYMPTOMS, RETURN TO THE ER! Please read the attached instructions, they highlight more specific treatments and interventions for you at home. Thank you for letting me participate in your care, Danielle Ibarra PA-C Prescriptions: No Action lisinopril 10 mg tablet 10 mg PO DAILY doxycycline hyclate 100 mg tablet 100 mg PO BID Qty: 20 0RF Referrals: Miscellaneous,Doctor, [Primary Care Provider, Medical] Stand Alone Forms: Patient Portal/API ED Sign-out <Cinthya Cabral, - Last Filed: 08/02/25 23:34> Cosign ED Attending Randy Attestation: I was immediately available in the department for consultation.
== END 2025-07-31 15:44 | disposition home or self-care (01) ==
PROVIDERS: Emergency Provider Physician Assistant
DX: L03.116 Cellulitis of left lower limb (principal)
CPT/HCPCS: 99281

== ENCOUNTER → 2025-08-13 06:46 | Outpatient (CLI) | payer MEDICARE, SELFPAY ==
[2025-08-13 07:33] LABS: Add Manual Diff / Slide Review NO; Hematocrit 46.7 % (41-53); Hemoglobin 16.1 g/dL (13.5-17.5); Lymphocytes Absolute Auto 2100 /uL (1100-4500); Mean Corpuscular HGB Conc 34.4 % (30-36); Mean Corpuscular Hemoglobin 32.8 PG (26-34); Mean Corpuscular Volume 95.3 fL (80-100); Platelet Count 259 X10^3/uL (150-400)
[2025-08-13 07:52] LABS: Alanine Aminotransferase 35 IU/L (<50); Albumin 4.6 g/dL (3.5-5.0); Albumin Globulin Ratio 1.6 (1.0-2.8); Alkaline Phosphatase 43 U/L (38-126); Blood Urea Nitrogen 17 mg/dL (9-20); Calcium 9.7 mg/dL (8.4-10.2); Carbon Dioxide 27 mmol/L (22-32); Chloride 103 mmol/L (98-107); Cholesterol 192 mg/dL (140-199); Estimated Glomerular Filt Rate > 60 mL/min (>60); Globulin 2.8 g/dL (1.7-4.1); Glucose 97 mg/dL (70-99); HDL Cholesterol 59 mg/dL (40-60); HEMOLYSIS 28 (0-50); Potassium 4.4 mmol/L (3.4-5.1); Sodium 138 mmol/L (137-145); Total Protein 7.4 g/dL (6.3-8.2); Triglycerides 157 mg/dL (35-150)
== END ==
PROVIDERS: PCP Family Medicine; Referring Provider Family Medicine; Visit Provider Family Medicine
DX: I10 Essential (primary) hypertension (principal); Z12.5 Encounter for screening for malignant neoplasm of prostate
CPT/HCPCS: 36415; 80053; 80061; 85025; G0103

== ENCOUNTER → 2025-09-05 09:04 | Outpatient (CLI) | payer MEDICARE, SELFPAY | LOC: LAB 09:05 | PROVIDERS: PCP Family Medicine; Referring Provider Family Medicine; Visit Provider Family Medicine | DX: N52.9 Male erectile dysfunction, unspecified (principal) | CPT/HCPCS: 36415; 84402; 84403 ==

== ENCOUNTER → 2025-09-19 08:54 | Outpatient (CLI) | payer MEDICARE, SELFPAY | PROVIDERS: PCP Family Medicine; Referring Provider Family Medicine; Visit Provider Family Medicine | DX: N52.9 Male erectile dysfunction, unspecified (principal) | CPT/HCPCS: 36415; 84402; 84403 ==